=== PATIENT | female | born 1945 | race Caucasian/White ===

== ENCOUNTER 2022-10-25 11:00 | Outpatient (RCR) | payer MEDICARE, OTHER, SELFPAY | END 2022-12-24 16:21 | disposition home or self-care (01) | LOC: HO.PT 11:00 | PROVIDERS: Visit Provider Orthopaedic Surgery | DX: C90.00 Multiple myeloma not having achieved remission (principal); M70.61 Trochanteric bursitis, right hip; M70.62 Trochanteric bursitis, left hip; Z96.642 Presence of left artificial hip joint | CPT/HCPCS: 97110; 97112; 97140; 97161 ==

== ENCOUNTER 2023-04-18 14:00 | Outpatient (RCR) | payer MEDICARE, OTHER, SELFPAY | END 2023-05-28 07:21 | disposition home or self-care (01) | LOC: HO.PT 14:00 | PROVIDERS: Visit Provider Orthopaedic Surgery | DX: C90.00 Multiple myeloma not having achieved remission (principal); Z96.642 Presence of left artificial hip joint | CPT/HCPCS: 97110; 97161 ==